=== PATIENT | female | born 1945 | race Caucasian/White ===

== ENCOUNTER 2019-10-01 18:23 | Emergency (ER) | payer MEDICARE ==
[~2019-10-01] VITALS: Ht 160 cm; Wt 90.0 kg
[2019-10-01] MEDS ORDERED: ECOT81TA5 PO (18:56)
[2019-10-01] MEDS ORDERED: GLIP5TAB8 PO (18:56)
[2019-10-01] MEDS ORDERED: SERT-141 PO (18:56)
[2019-10-01] MEDS ORDERED: LISI20TA20 PO (18:56)
[2019-10-01] MEDS ORDERED: CARV12.5 PO (18:56)
[2019-10-01] MEDS ORDERED: vitamin d PO (18:56)
[2019-10-01] MEDS ORDERED: IRON65TA2 PO (18:56)
[2019-10-01] MEDS ORDERED: B-122500 PO (18:56)
[2019-10-01] MEDS ORDERED: METF10004 PO (18:56)
[2019-10-01 18:57] LABS: BASO # 0.1 10^3/uL (0.0-0.2); BASO % 0.4 % (0.0-1.0); EOS # 0.3 10^3/uL (0.0-0.5); EOS % 2.8 % (0.0-3.0); HEMATOCRIT 41.1 % (36.0-47.0); HEMOGLOBIN 13.4 g/dl (12.0-15.5); LYMPH # 2.3 10^3/uL (1.5-5.0); MEAN CORPUSCULAR HEMOGLOBIN 27.9 pg (27.0-33.0); MEAN CORPUSCULAR HGB CONC 32.6 g/dl (32.0-36.5); MEAN CORPUSCULAR VOLUME 85.6 fl (80.0-96.0); MONO # 0.6 10^3/uL (0.0-0.8); MONO % 4.9 % (0.0-5.0); NEUTROPHILS # 8.7 10^3/uL (1.5-8.5); NEUTROPHILS % 72.5 % (36.0-66.0); PLATELET COUNT, AUTOMATED 271 10^3/uL (150-450); WHITE BLOOD COUNT 11.9 10^3/uL (4.0-10.0)
[2019-10-01 19:09] LABS: INR 1.04; PROTHROMBIN TIME 13.3 SECONDS (11.8-14.0)
[2019-10-01 19:10] LABS: PARTIAL THROMBOPLASTIN TIME 27.7 SECONDS (25.0-38.4)
[2019-10-01 19:15] LABS: BLOOD UREA NITROGEN 12 MG/DL (7-18); CALCIUM LEVEL 9.2 MG/DL (8.8-10.2); CARBON DIOXIDE LEVEL 33 MEQ/L (21-32); CHLORIDE LEVEL 101 MEQ/L (98-107); CK-MB VALUE MASS 3.2 NG/ML (<3.6); CPK CREATINE PHOSPHOKINASE 116 U/L (26-192); CREATININE FOR GFR 0.93 MG/DL (0.55-1.30); GLOMERULAR FILTRATION RATE > 60.0 (>39); GLUCOSE, FASTING 219 MG/DL (70-100); MB/CK RELATIVE INDEX 2.76 (< OR =4); SODIUM LEVEL 140 MEQ/L (136-145); TROPONIN I < 0.02 NG/ML (< 0.10)
--- NOTE | 2019-10-01 19:21 | ECGEPIP ---
[facility] - ED Test Date: 2019-10-01 Pat Name: LIZY GOULD Department: Room: - Gender: Female Transit Manager: monse : 1945 Requested By: ARNOL Cantu Order Number: [id number] Reading MD: Jay Sam Measurements Intervals [place] Rate: 68 P: 44 MS: 170 QRS: 33 QRSD: 88 T: 128 QT: 397 QTc: 424 Interpretive Statements SINUS RHYTHM WITH SINUS ARRHYTHMIA NSTTW ABNORMALITIES NO PRIORS FOR COMPARISON Electronically Signed on 10-01-2019 19:21:36 EDT by Jay Sam
--- NOTE | 2019-10-01 19:27 | REPVR ---
PROCEDURE INFORMATION: Exam: CT Head Without Contrast Exam date and time: 10/01/2019 6:46 PM Age: 73 years old Clinical indication: Pain; Headache not specified; Additional info: Headache, R/O stroke TECHNIQUE: Imaging protocol: Computed tomography of the head without contrast. Radiation optimization: All CT scans at this facility use at least one of these dose optimization techniques: automated exposure control; mA and/or kV adjustment per patient size (includes targeted exams where dose is matched to clinical indication); or iterative reconstruction. Other technique: STROKE PROTOCOL was implemented. COMPARISON: No relevant prior studies available. FINDINGS: Brain: No evolving transcortical infarction or intracranial hemorrhage seen. The brain demonstrates mild generalized volume loss. 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 Ventricles: The ventricles appear mildly enlarged in keeping with volume loss. Scattered dural base calcifications, likely dystrophic Bones/joints: Unremarkable. No acute fracture. Sinuses: Visualized sinuses are unremarkable. No fluid levels. Mastoid air cells: Visualized mastoid air cells are well aerated. Soft tissues: Unremarkable. IMPRESSION: No acute intracranial abnormality seen. ASSESSMENT: ASPECTS (Angella Stroke Program Early CT Score) is 10. . Electronically signed by: Ayde Payne On 10/01/2019 19:27:26 PM
[2019-10-01 19:48] LABS: ERYTHROCYTE SEDIMENTATION RATE 25 mm/hr (0-30)
[2019-10-01] MEDS ORDERED: LORazepam 1 MG TAB PO STA (19:51)
[2019-10-01] MEDS ORDERED: lisinopriL 20 MG TAB PO ONE (20:00)
[2019-10-01 20:53] VITALS: BP 180/90
[2019-10-01] MEDS ORDERED: KLON0.5T PO (21:27)
--- NOTE | 2019-10-02 08:20 | REP ---
Clinical: Acute cerebrovascular accident . Comparison: None . Findings: The mediastinum and cardiac silhouette are stable and within normal limits for portable technique. The lung moreira are clear without acute consolidation, effusion, or pneumothorax. Skeletal structures are intact. Impression: No acute cardiopulmonary process appreciated. Electronically Signed by Buck Moody MD 10/02/2019 08:12 A
== END 2019-10-01 21:43 | disposition home or self-care (01) ==
LOC: M ED 18:23
DX: G44.209 Tension-type headache, unspecified, not intractable (principal); I10 Essential (primary) hypertension; E11.9 Type 2 diabetes mellitus without complications; F41.9 Anxiety disorder, unspecified; E66.9 Obesity, unspecified; D50.9 Iron deficiency anemia, unspecified; Z79.82 Long term (current) use of aspirin; Z79.84 Long term (current) use of oral hypoglycemic drugs; Z79.899 Other long term (current) drug therapy